=== PATIENT | female | born 1995 | race Caucasian/White ===

== ENCOUNTER 2017-06-15 19:45 | Emergency (ER) | payer OTHER ==
[~2017-06-15] VITALS: Ht 157.5 cm; Wt 48.9 kg
[2017-06-15 19:48] VITALS: TEMP 37.1; Ht 157.5 cm; Wt 48.9 kg
[2017-06-15] MEDS ORDERED: OXYCODONE HCL IR 5 MG TAB (IMMEDIATE RELEASE) PO STA (19:58)
[2017-06-15] MEDS ORDERED: CEPHALEXIN MONOHYDRATE 250 MG CAP PO ONE (20:45)
[2017-06-15] MEDS ORDERED: CEPHALEXIN 500MG HOME PACK 1 EA BTL PO ONE (20:45)
[2017-06-15] MEDS ORDERED: OXYCODONE IR HOME PACK PO ONE (20:45)
--- NOTE | 2017-06-15 20:47 | DIAGNOSTIC IMAGING REPORT ---
MAXILLOFACIAL CT WITHOUT CONTRAST CLINICAL HISTORY: Left facial/mandible injury. COMPARISON STUDY: None. TECHNIQUE: A maxillofacial CT was performed without IV contrast. Coronal and sagittal reformats were viewed. A dose lowering technique was utilized adhering to the principles of ALARA. FINDINGS: Note is made of an acute nondisplaced fracture through the posterior body and angle of the left hemimandible. This fracture extends through the socket for the left third mandibular molar which may be loosened. There is a moderate amount of adjacent soft tissue gas and infiltration. There is also an acute nondisplaced right parasymphyseal mandibular fracture. Alignment of the temporomandibular joints appears anatomic. The right mandibular condyle is somewhat irregular and diminutive. Orbital floors are intact. There is mild mucosal thickening of the sinuses. Globes are intact. There is no retrobulbar hematoma. There is no skull base or upper cervical spine fracture. IMPRESSION: 1. Acute nondisplaced comminuted fracture of the posterior body and angle of the left hemimandible. Moderate associated soft tissue gas and infiltration. The fracture extends through the socket for the left third mandibular molar which may be loosened. 2. Acute nondisplaced right parasymphyseal mandibular fracture. Electronically signed by: Johann Johnson M.D. 06/15/2017 8:46 PM Dictated Date/Time: 06/15/2017 8:38 PM
[2017-06-15] MEDS ORDERED: OXYC1TAB3 PO (20:52)
[2017-06-15] MEDS ORDERED: CEPH500C2 PO (21:15)
[2017-06-15 21:19] VITALS: BP 123/74; PULSE 59; O2SAT 99
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
== END 2017-06-15 21:21 | disposition home or self-care (01) ==
LOC: C.EDB 19:47 → C.EDA 21:21
DX: S02.609B Fracture of mandible, unspecified, initial encounter for open fracture (principal); S00.83XA Contusion of other part of head, initial encounter; W51.XXXA Accidental striking against or bumped into by another person, initial encounter; Y93.66 Activity, soccer; Y99.8 Other external cause status; Z90.89 Acquired absence of other organs